=== PATIENT | male | born 1990 | race Caucasian/White ===

== ENCOUNTER 2017-03-24 17:37 | Emergency (ER) | payer BC, OTHER ==
[2017-03-24] MEDS: DEXAMETHASONE 10 MG/ML 1 ML INJ IM (21:43)
[2017-03-24] MEDS: IPRATROPIUM (NEB) 0.5 MG/2.5 ML AMP INH (21:46)
[2017-03-24] MEDS: ALBUTEROL 0.5% (NEB) 2.5 MG/0.5 ML AMP INH (21:46)
== END 2017-03-24 23:07 | disposition home or self-care (01) ==
LOC: FTE 17:37
DX: R06.2 Wheezing (principal)
CPT/HCPCS: 71045; 94644; 96372; 99284-25